=== PATIENT | male | born 1955 | race Caucasian/White ===

== ENCOUNTER → 2023-10-05 14:33 | Outpatient (REF) | payer OTHER, SELFPAY | LOC: DHCBS MAIN 14:33 | PROVIDERS: ATTENDING PHYSICIAN Nuclear Medicine Nuclear Cardiology; FAMILY PHYSICIAN Family Medicine | DX: R00.1 Bradycardia, unspecified (principal); I42.9 Cardiomyopathy, unspecified; I49.3 Ventricular premature depolarization | CPT/HCPCS: 93306 ==

== ENCOUNTER 2023-11-12 06:21 | Day surgery (SDC) | payer OTHER, SELFPAY ==
[2023-11-12] VITALS (13 sets, daily range): BP systolic 117–151; BP diastolic 69–81; BMI 18.2
[2023-11-12 07:15] LABS: Mean Corp Hgb Conc. 33.7 g/dL (33.0-37.0); Mean Corpuscular Hgb 32.4 pg (27.0-31.0); Mean Corpuscular Volume 96.1 fL (80.0-94.0); Mean Platelet Volume 10.4 fL (7.4-10.4); Platelet Count 152 10^3/uL (130-400); Red Blood Cell Count 2.07 10^6/uL (4.70-6.10); Red Cell Dist. Width 13.4 % (11.5-14.5); White Blood Cell Count 4.8 10^3/uL (4.8-10.8)
[2023-11-12] MEDS: LOW STRENGTH ASPIRIN 324 MG PO (07:17)
[2023-11-12 07:19] LABS: Hematocrit 19.9 % (39.0-52.0); Hemoglobin 6.7 g/dL (13.0-18.0)
[2023-11-12 07:52] LABS: % Basophils 0.9 % (0-2); % Eosinophils 0.9 % (0-6); % Immature Granulocytes 0.4 % (0-0.5); % Lymphocytes 28.4 % (20.5-51.1); % Monocytes 10.1 % (1.7-9.3); % Neutrophils 59.3 % (42.2-75.2); Absolute Basophils 0.1 10^3/uL (0-0.2); Absolute Eosinophils 0.1 10^3/uL (0-0.7); Absolute Lymphocytes 3.2 10^3/uL (1.2-3.4); Absolute Monocytes 1.1 10^3/uL (0.1-0.6); Absolute Neutrophils 6.7 10^3/uL (1.4-6.5); Hematocrit 45.4 % (39.0-52.0); Mean Corp Hgb Conc. 34.1 g/dL (33.0-37.0); Mean Corpuscular Hgb 32.2 pg (27.0-31.0); Mean Corpuscular Volume 94.2 fL (80.0-94.0); Mean Platelet Volume 10.5 fL (7.4-10.4); Nucleated Red Blood Cells % 0 % (-); Platelet Count 363 10^3/uL (130-400); Red Blood Cell Count 4.82 10^6/uL (4.70-6.10); Red Cell Dist. Width 13.3 % (11.5-14.5); White Blood Cell Count 11.3 10^3/uL (4.8-10.8)
[2023-11-12 08:03] LABS: Hemoglobin 15.5 g/dL (13.0-18.0)
[2023-11-12 08:12] LABS: ALT (SGPT) 42 U/L (0-50); AST (SGOT) 35 U/L (17-59); Albumin 4.4 g/dl (3.5-5.0); Alkaline Phosphatase 49 U/L (38-126); Blood Urea Nitrogen 8 mg/dl (9-20); Calcium 9.2 mg/dl (8.4-10.2); Carbon Dioxide 28 mmol/L (22-30); Chloride 100 mmol/L (98-107); Estimated Creatinine Clearance 90 ml/min; Glucose 102 mg/dl (70-99); Potassium 4.9 mmol/L (3.5-5.1); Sodium 132 mmol/L (135-145); Total Bilirubin 0.8 mg/dl (0.2-1.3); Total Protein 6.6 g/dl (6.3-8.2); eGFR > 60.00
--- NOTE | 2023-11-12 08:18 | ITS.CL.CATH ---
[facility] - Catheterization
Cardiac Catheterization
Procedure Report:
LEFT HEART CATHETERIZATION
Date of Procedure: November 12, 2023
Referring: Crispin Gillette
PROCEDURES:
1. Left heart catheterization, coronary angiogram.
2. Ultrasound-guided
INDICATION: Mr. Peraza is a 68-year-old gentleman with past medical history of hypertension, hyperlipidemia, COPD, former tobacco abuse, nonobstructive CAD with presumed nonischemic cardiomyopathy status post ICD implantation with EF recovering to
45 to 50% in October 2022 who now is being referred for left heart catheterization given most recent echocardiogram showed EF of 25 to 30% to rule out obstructive CAD. He also has a history of cerebral aneurysm repair, esophageal ulcer in December 2022,
COVID-19 in May 2023, mild pulmonary hypertension.
ACCESS: Right radial artery, 6 [place] sheath, under ultrasound guidance.
HEMODYNAMICS : (mmHg)
AO (s/d) : 118/55
LV (s/d) : 119/12
LVEDP : 20
CORONARY FINDINGS
DOMINANCE: Right
LEFT MAIN: The left main artery is a large-caliber vessel which gives rise to the left anterior descending artery and the left circumflex artery. There is minimal luminal irregularities.
LEFT ANTERIOR DESCENDING: The left into descending artery is a large-caliber vessel which gives rise to 2 major diagonal branches as it courses through the anterior interventricular groove towards the apex. There is mild diffuse atherosclerotic
plaque.
CIRCUMFLEX: The left circumflex artery is a medium caliber vessel which gives rise to 1 major branching obtuse marginal branch. There is mild diffuse atherosclerotic plaque.
RIGHT CORONARY ARTERY: The right coronary artery is a large-caliber, dominant vessel which gives rise to the right posterior descending artery and the right posterolateral system. There is mild diffuse atherosclerotic plaque.
SEDATION: 23 minutes of procedural sedation was utilized. An independent medical office secretary was present to assist with and help manage the patient's level of consciousness and physiologic status.
RADIATION SUMMARY: Fluoro Time (min): 1.5, Dose (mGy): 105.6, DAP (Gy.cm2) : 7.0
Closure Device: Vascular band over right radial artery, 12 cc of air
CONCLUSIONS
1. No obstructive coronary artery disease.
2. Mildly elevated LVEDP.
RECOMMENDATIONS
1. Goal-directed medical therapy for nonischemic cardiomyopathy.
2. Wean radial band per protocol.
3. Aggressive management of cardiovascular risk factors.
4. Patient already has an appointment with EP to discuss PVC ablation.
5. Referral for outpatient cardiac rehab.
Copy to: Cirspin Gillette
Sofi Savage MD, FACC, [facility]
[2023-11-12] MEDS: LASIX 20 MG IV (09:10)
[2023-11-12] MEDS: NSS 1000 IV (11:39)
== END 2023-11-12 12:20 | disposition home or self-care (01) ==
LOC: CATH 06:21
PROVIDERS: ATTENDING PHYSICIAN Internal Medicine Interventional Cardiology; FAMILY PHYSICIAN Family Medicine; OTHER PHYSICIAN Nuclear Medicine Nuclear Cardiology
DX: I25.10 Atherosclerotic heart disease of native coronary artery without angina pectoris (principal); Z95.810 Presence of automatic (implantable) cardiac defibrillator; I42.8 Other cardiomyopathies; Z87.891 Personal history of nicotine dependence; J44.9 Chronic obstructive pulmonary disease, unspecified; E78.5 Hyperlipidemia, unspecified; I10 Essential (primary) hypertension; I27.20 Pulmonary hypertension, unspecified; Z86.79 Personal history of other diseases of the circulatory system; Z86.16 Personal history of COVID-19
CPT/HCPCS: 99152; 99153; 76937; 80053; 85025; 85027; 93458; C1894; Q9967

== ENCOUNTER 2023-11-12 22:56 | Emergency (ER) | payer OTHER, MEDICARE, SELFPAY ==
[2023-11-12 23:04] VITALS: BP 124/80
[2023-11-12 23:31] VITALS: BMI 18.1
--- NOTE | 2023-11-13 00:16 | ED.GENMED ---
History of Present Illness
General
Chief Complaint: Post Operative Problem(s)
Source: patient and spouse
Time Seen by Provider: 11/12/23 23:42
Travel History
Have you had any contact with someone who has COVID-19?: No
Do you have any symptoms of coronavirus? Fever > 100 degrees, chills, cough, shortness of breath, sore throat, loss of taste or smell, muscle aches, or headache?: No
History of Present Illness
History of Present Illness:
68-year-old male status post catheterization earlier today, radial artery approach, who presents emergency department with right inner wrist area swelling noted since about 7 PM tonight. No bleeding, numbness, tingling, fever, chills, or other
complaints. Patient called rehanger and was referred to the emergency department. He denies any other complaints.
Past History
Past History
ED Past Medical History: CAD, COPD, HTN, Hypercholesterolemia and Other (Nonischemic cardiomyopathy, cerebral aneurysm repair, esophageal ulcer, mild pulmonary hypertension)
ED Past Surgical History: Cardiac (Defibulator) and Other (Brain aneurysm)
Social History
Tobacco: Former smoker
Alcohol: None
Personal:
Living: with family
Phy Exam
Physical Exam
Physical Exam:
GENERAL: Alert , in no apparent distress
EYE: pupils equal and reactive
NECK: Supple, no significant adenopathy.
ENT: o/p clr, mmm.
CARDIAC: Regular rate and rhythm .
LUNGS: Equal breath sounds bilaterally, no acute respiratory distress, no rales or rhonchi, mild wheezing noted
ABDOMEN: Soft, without focal tenderness, no r/g, no cvat
NEUROLOGICAL: Alert and oriented, no focal neuro deficits
SKIN: Warm and dry, skin intact. At the right inner distal wrist area there is a small hematoma noted, normal radial pulse, cap refill under 2 seconds, fingers warm and well-perfused. No bruit noted over hematoma, nontender to palpation, no
active bleeding, no redness streaking or other abnormalities noted.
MUSCULOSKELETAL: No edema except that hematoma as noted above, well perfused.
PSYCH: Normal and appropriate interaction.
Course
Vital Signs
Initial and Last Documented VS:
Initial Vital Signs
Temp Pulse Resp BP Pulse Ox
97.4 F 64 19 124/80 97
11/12/23 23:04 11/12/23 23:04 11/12/23 23:04 11/12/23 23:04 11/12/23 23:04
Last Documented Vital Signs
Temp Pulse Resp BP Pulse Ox
97.4 F 64 19 124/80 95
11/12/23 23:04 11/12/23 23:04 11/12/23 23:04 11/12/23 23:04 11/12/23 23:46
*Critical Care Note
Total Time (30-74mins, 75-104mins- exclusive of procedures): Not Applicable
Update Note
Update Note:
Patient presents to the Emergency Department with __right wrist swelling
Number and Complexity of Problems Addressed at the Encounter
� Chronic conditions affecting care:
� Acute Exacerbation and/or Progression of Chronic Illness:
� Differential Diagnosis includes:
Amount and/or Complexity of Data to be Reviewed and Analyzed
� I performed an independent evaluation of and my interpretation is:
EKG:
CT:
Xrays:
Laboratory Studies:
Other:
� Review of other/old records reveals: Cath report from today noted they used a right radial artery approach, incidentally nonobstructive CAD noted
� Clinical information was obtained by an independent historian: who is at bedside
� Prescriptions/Medications Considered but not given:
� Further testing considered but not performed: Consider ultrasound to rule out pseudoaneurysm however suspicion is extremely low given no bruit, extremity warm well-perfused, small sized to hematoma, etc.
Risk of Complications and/or Morbidity or Mortality of Patient Management
� Social determinants of health affecting care:
� Discussion with other providers (PCP, Hospitalists, Consultants, etc):
� Escalation of care including admission/observation vs risk of discharge considered: Patient presents with wrist swelling discomfort since about 7 PM, obvious small hematoma noted, pulses present, well-perfused normal cap
refill, no bruit on auscultation all of which leads to a low suspicion for pseudoaneurysm. Given normal perfusion, and low suspicion, it is appropriate to have patient follow-up with office in a.m. This was discussed with Dr. Enriquez, photos sent
as well via [place] text, and he agrees. Of note, patient states that earlier this evening his fingers felt a little 'cold', this is now fully resolved, and he states he thinks it is because his house is cold.
ED Attending Note
-
Portions of this chart may have been created with voice recognition software.� Occasional wrong word or��sound alike� substitutions may have occurred due to the inherent limitations of voice recognition software.
Discharge Plan
Departure
Patient Disposition: Home (Routine Discharge)
Date of Disposition: 11/13/23
Time of Disposition: 00:21
Patient with high blood pressure during this ER visit?: Yes
Discharge Problem:
Hematoma
Instructions: BLOOD PRESSURE, Hematoma
Prescriptions:
No Action
clonazepam 0.5 MG tablet
0.5 mg PO HS
carvedilol 25 mg Tablet
25 mg PO BID
Breztri Aerosphere 160-9-4.8 mcg/actuation HFA aerosol inhaler
2 inh INHALATION R BID
acetaminophen [Tylenol] 325 mg Tablet
650 mg PO Q4H PRN (Reason: pain)
albuterol sulfate [Ventolin HFA] 90 mcg/actuation Hfa Aerosol Inhaler
2 puff INHALATION PRN PRN (Reason: sob)
atorvastatin 20 mg tablet
20 mg PO QPM Qty: 90 5RF
furosemide [Lasix] 20 mg tablet
20 mg PO DAILY Qty: 90 5RF
Entresto 24-26 mg tablet
1 tab PO BID Qty: 60 5RF
dapagliflozin propanediol [Farxiga] 10 mg tablet
10 mg PO DAILY Qty: 30 5RF
Referrals:
Sofi Savage MD [Active] - 11/13/23
Activity Restrictions/Additional Instructions:
PLEASE CONTACT YOUR SPRING FLOOR SERVICE WORKER THIS AM FOR FURTHER FOLLOW UP. KEEP THE DRESSING ON YOUR WRIST AREA TODAY. IF YOU DEVELOP INCREASING/NEW SWELLING, BLEEDING, REDNESS, WARMTH, FEVER, PAIN, NUMBNESS, TINGLING, COOL/COLD FINGERS, OR OTHER WORRISOME
SIGNS, GO TO THE ER IMMEDIATELY!
Interventions
Interventions:
*Risk Screen - Suicide Last Done: 11/12/23 23:04
*General Assessment Last Done: 11/12/23 23:04
*Neglect/Abuse Screening Last Done: 11/12/23 23:04
ED- Fall Risk Assessment Last Done: 11/12/23 23:46
*ED COVID-19 Vaccine History Last Done: 11/12/23 23:04
ED-Skin Assessment Last Done: 11/12/23 23:46
[2023-11-13 01:00] VITALS: BP 110/70
== END 2023-11-13 01:00 | disposition home or self-care (01) ==
LOC: EMR 22:56
PROVIDERS: EMERGENCY PHYSICIAN Emergency Medicine; FAMILY PHYSICIAN Family Medicine
DX: S60.211A Contusion of right wrist, initial encounter (principal); X58.XXXA Exposure to other specified factors, initial encounter; I25.10 Atherosclerotic heart disease of native coronary artery without angina pectoris; J44.9 Chronic obstructive pulmonary disease, unspecified; I10 Essential (primary) hypertension; E78.00 Pure hypercholesterolemia, unspecified; Z87.891 Personal history of nicotine dependence
CPT/HCPCS: 99282

== ENCOUNTER → 2023-11-13 14:24 | Outpatient (REF) | payer OTHER, MEDICARE, SELFPAY | LOC: RAD 14:24 | PROVIDERS: ATTENDING PHYSICIAN Internal Medicine Cardiovascular Disease; FAMILY PHYSICIAN Family Medicine | DX: T14.8XXA Other injury of unspecified body region, initial encounter (principal); I97.638 Postprocedural hematoma of a circulatory system organ or structure following other circulatory system procedure; T81.718A Complication of other artery following a procedure, not elsewhere classified, initial encounter; I72.9 Aneurysm of unspecified site | CPT/HCPCS: 93926 ==

== ENCOUNTER 2024-01-06 06:05 | Day surgery (SDC) | payer OTHER, SELFPAY ==
[2023-12-24 13:35] VITALS: BMI 19.0
[2023-12-24 13:50] LABS: % Basophils 0.9 % (0-2); % Eosinophils 0.8 % (0-6); % Immature Granulocytes 0.3 % (0-0.5); % Lymphocytes 20.8 % (20.5-51.1); % Monocytes 11.7 % (1.7-9.3); % Neutrophils 65.5 % (42.2-75.2); Absolute Basophils 0.1 10^3/uL (0-0.2); Absolute Eosinophils 0.1 10^3/uL (0-0.7); Absolute Lymphocytes 2.3 10^3/uL (1.2-3.4); Absolute Monocytes 1.3 10^3/uL (0.1-0.6); Absolute Neutrophils 7.3 10^3/uL (1.4-6.5); Hematocrit 44.3 % (39.0-52.0); Hemoglobin 15.1 g/dL (13.0-18.0); Mean Corp Hgb Conc. 34.1 g/dL (33.0-37.0); Mean Corpuscular Hgb 31.9 pg (27.0-31.0); Mean Corpuscular Volume 93.7 fL (80.0-94.0); Mean Platelet Volume 10.7 fL (7.4-10.4); Nucleated Red Blood Cells % 0 % (-); Platelet Count 367 10^3/uL (130-400); Red Blood Cell Count 4.73 10^6/uL (4.70-6.10); Red Cell Dist. Width 13.3 % (11.5-14.5); White Blood Cell Count 11.2 10^3/uL (4.8-10.8)
[2023-12-24 14:22] LABS: ALT (SGPT) 28 U/L (0-50); AST (SGOT) 32 U/L (17-59); Albumin 4.3 g/dl (3.5-5.0); Alkaline Phosphatase 39 U/L (38-126); Blood Urea Nitrogen 10 mg/dl (9-20); Calcium 9.3 mg/dl (8.4-10.2); Carbon Dioxide 27 mmol/L (22-30); Chloride 101 mmol/L (98-107); Estimated Creatinine Clearance 77 ml/min; Glucose 81 mg/dl (70-99); Magnesium 2.2 mg/dl (1.6-2.3); Potassium 4.9 mmol/L (3.5-5.1); Sodium 132 mmol/L (135-145); Total Bilirubin 0.7 mg/dl (0.2-1.3); Total Protein 6.6 g/dl (6.3-8.2); eGFR > 60.00
[2024-01-06] VITALS (12 sets, daily range): BP systolic 113–136; BP diastolic 71–83
[2024-01-06 09:35] LABS: ACT-LR - POC 231 Seconds (116-155)
--- NOTE | 2024-01-06 10:09 | ITS.CL.ABL ---
[facility] - Ablation
Ablation
Procedure Report:
ELECTROPHYSIOLOGY AND ABLATION REPORT
Date of Procedure: 01/06/24
Referring:
Dr Kumar Amos
Dr Crispin Gillette
INDICATION:
Symptomatic premature ventricular contractions and nonsustained ventricular tachycardia
HISTORY:
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
The clinical PVC morphology: Left bundle inferior axis transition at lead V3 V4, c/w RVOT origin
.
Of note, he has a dual-chamber ICD system. That is while he has a [employer] generator there is no left ventricular lead, the LV port on the generator is pinned. He is not getting cardiac resynchronization pacing/therapy.
PROCEDURE:
Ultrasound Guidance performed by ks was utilized for femoral venous Vascular Access b/l. Vascular US demonstrated the typical vascular anatomy.
Quadripolar catheter was positioned at the RV apex.
Intravenous heparin was administered.
Intracardiac echocardiogram was utilized to guide mapping and ablation catheter navigation and also to assess for any mechanical complications.
Multipolar mapping catheter Franco grid catheter was used to create high definition three-dimensional electroanatomical map (NAVEX) of the right ventricle and RVOT this demonstrated earliest activation leftward just underneath the pulmonic valve or
bipolar signal is 25 ms early in unipolar signal demonstrates a sharp QS.
Radiofrequency energy delivery was via a 4 mm irrigated contact sensing ablation catheter with energy delivery varying from 20 W to 30 W
After ablation clinical PVCs were eliminated. This is a marked change from preprocedure where PVCs were bigeminal.
During a 15-minute post ablation waiting period no clinical PVCs were observed
Intracardiac echocardiography at the end of the case demonstrated no change in left ventricular systolic function and no pericardial effusion.
The ICD was interrogated prior to ablation with interrogation demonstrated normal function of the ICD and lead system. The VT/VF detections were programmed off.
After ablation and all catheters removed from the heart, there is no change in fluoroscopic positioning of the leads and interrogation of the device finds normal stable function of the ICD lead system. VT/VF ablations were reprogrammed on.
COMPLICATIONS: None
SUMMARY:
Mapping and ablation of nonsustained ventricular tachycardia and PVCs
Three-dimensional electroanatomical mapping
Intracardiac echocardiogram
Interrogation of dual-chamber ICD
RECOMMENDATIONS:
Consideration for discharge to home later today.
As an outpatient, continue with attempts at guideline directed medical therapy for heart failure with reduced ejection fraction
Copy to:
Dr Kumar Amos
Dr Crispin Gillette
== END 2024-01-06 15:11 | disposition home or self-care (01) ==
LOC: CATH 06:05
PROVIDERS: ATTENDING PHYSICIAN Internal Medicine Cardiovascular Disease; FAMILY PHYSICIAN Family Medicine; OTHER PHYSICIAN Nuclear Medicine Nuclear Cardiology
DX: I47.20 Ventricular tachycardia, unspecified (principal); I49.3 Ventricular premature depolarization; Z95.810 Presence of automatic (implantable) cardiac defibrillator; I42.8 Other cardiomyopathies; J44.9 Chronic obstructive pulmonary disease, unspecified; Z87.891 Personal history of nicotine dependence; I25.10 Atherosclerotic heart disease of native coronary artery without angina pectoris
CPT/HCPCS: 93662; C1732; C1730 ×2; C1894; C1766; C2630; C1892; C1759; 36415; 76937; 80053; 83735; 85025; 85347; 86850; 86900; 86901; 93005; 93654; C1760

== ENCOUNTER → 2024-03-28 12:35 | Outpatient (REF) | payer OTHER, SELFPAY | LOC: RAD 12:35 | PROVIDERS: ATTENDING PHYSICIAN Family Medicine | DX: M75.01 Adhesive capsulitis of right shoulder (principal) | CPT/HCPCS: 73030 ==

== ENCOUNTER → 2024-03-30 15:49 | Outpatient (REF) | payer OTHER, SELFPAY | LOC: RCS 15:49 | PROVIDERS: ATTENDING PHYSICIAN Nuclear Medicine Nuclear Cardiology; FAMILY PHYSICIAN Family Medicine | DX: I25.10 Atherosclerotic heart disease of native coronary artery without angina pectoris (principal) | CPT/HCPCS: 93306 ==

== ENCOUNTER → 2025-07-17 15:51 | Outpatient (REF) | payer OTHER, SELFPAY | LOC: RCS 15:51 | PROVIDERS: ATTENDING PHYSICIAN Nuclear Medicine Nuclear Cardiology; FAMILY PHYSICIAN Family Medicine | DX: I42.8 Other cardiomyopathies (principal); R06.02 Shortness of breath | CPT/HCPCS: 93306 ==

== ENCOUNTER 2025-07-24 06:21 | Day surgery (SDC) | payer OTHER, SELFPAY | END 2025-07-24 11:02 | disposition home or self-care (01) | LOC: GI 06:21 | PROVIDERS: ATTENDING PHYSICIAN Internal Medicine Gastroenterology | DX: R14.0 Abdominal distension (gaseous) (principal); R63.4 Abnormal weight loss; R68.81 Early satiety; K29.70 Gastritis, unspecified, without bleeding; K29.80 Duodenitis without bleeding; K22.89 Other specified disease of esophagus; R89.7 Abnormal histological findings in specimens from other organs, systems and tissues; K22.70 Barrett's esophagus without dysplasia | CPT/HCPCS: 43239; 88305; 88312; 88342 ==